=== PATIENT | male | born 1990 | race Caucasian/White ===

== ENCOUNTER 2023-12-26 15:17 | Outpatient (OUT) | payer OTHER, SELFPAY ==
--- NOTE | 2023-12-26 15:28 | XR_ITS ---
[facility] [id number] Patient Name: OSMAN JONES MRN: [id number] date: 1990 Sex: M Assigned Patient Location: [facility] Current Patient Location: Accession/Order Number: [id number] Exam Date: 12/26/2023 15:30 Report Date: 12/29/2023 09:44 At the request of: ERNESTINA BREEN Procedure: XR hip LT min 2V PROCEDURE: XR hip LT min 2V HISTORY: Pain in left hip, M25.552 ; acute left and low back pain after falling COMPARISON: None. FINDINGS: BONES:No fracture, dislocation, or bone lesion. Small degenerative osteophyte along superior rim of acetabulum. Mild cam deformity of femoral neck. SOFT TISSUES:No visible soft tissue swelling. EFFUSION:None visible. OTHER: Negative. XR/XR hip LT min 2V IMPRESSION: 1. No acute bone abnormality. Electronically authenticated by: MATTHEW DAN Date: 12/29/2023 09:44
== END 2023-12-26 15:18 | disposition home or self-care (01) ==
PROVIDERS: PCP Internal Medicine; Visit Provider Internal Medicine
DX: M25.552 Pain in left hip (principal)
CPT/HCPCS: 73502